=== PATIENT | female | born 1960 | race Caucasian/White ===

== ENCOUNTER 2016-09-07 11:14 | Emergency (ER) | payer BC ==
[~2016-09-07] VITALS: Ht 165.1 cm; Wt 86.4 kg
[~2016-09-07 11:14] MED LIST: GLUCOPHAGE500 MG/TAB PO; NEXIUM 20MG20 MG PO; NORCO 325 MG-51 TAB PO; NOVOLOGMIX70/30 SC; PRINIVIL5 MG PO; VICTOZA6 MG/ML SQ; ZANTAC 7575 MG PO; ZOCOR 10MG10 MG PO
[2016-09-07 11:19] VITALS: TEMP 97
[2016-09-07 12:14] LABS: BASO % 0.7 % (0.0-2.0); EOS # 0.2 (0.0-0.7); EOS % 2.6 % (0-4.0); GRAN # 2.4 (1.4-6.5); GRAN % 42.1 % (42.2-75.2); HEMATOCRIT 39.9 % (37.0-47.0); HEMOGLOBIN 13.3 g/dl (12.5-16.0); LYMPH # 2.7 (1.2-3.4); LYMPH % 47.5 % (20.0-51.0); MEAN CELL VOLUME 86 fl (80.0-100.0); MEAN CORPUSCULAR HEMOGLOBIN 29 pg (27.0-31.0); MEAN CORPUSCULAR HGB CONC 33 g/dl (33.0-37.0); MEAN PLATELET VOLUME 9.7 fl (7.4-10.4); MONO # 0.4 (0.1-0.6); MONO % 6.8 % (1.7-9.3); PLATELET COUNT 353 K/mm3 (130-400); RED BLOOD COUNT 4.62 M/mm3 (4.10-5.30); REDCELL DISTRIBUTION WIDTH-CV 14.1 % (11.5-14.5); WHITE BLOOD COUNT 5.8 K/mm3 (4.8-10.8)
[2016-09-07 12:24] LABS: ADJUSTED CALCIUM 9.3 mg/dL (8.4-10.2); ALBUMIN 3.9 gm/dL (3.5-5.0); BILIRUBIN,TOTAL 0.7 mg/dL (0.0-1.0); CALCIUM 9.2 mg/dL (8.4-10.2); CREATININE, serum 0.62 mg/dL (0.52-1.25); MAGNESIUM 1.7 mg/dL (1.6-2.3); POTASSIUM 4.1 mmol/L (3.4-5.0); TOTAL PROTEIN 7.3 gm/dL (6.4-8.2)
[2016-09-07 12:41] LABS: PROLACTIN 7.4 ng/mL (3.0-18.6)
[2016-09-07] MEDS ORDERED: PHENERGAN 25 TA25 MG PO (13:25)
[2016-09-07] MEDS ORDERED: ANTIVERT 25MG25 MG PO (13:25)
[2016-09-07 13:40] VITALS: BP 128/78; PULSE 78
== END 2016-09-07 13:43 | disposition home or self-care (01) ==
LOC: COL.ER 11:14
PROVIDERS: Emergency Medicine
DX: R42 Dizziness and giddiness (principal); E11.9 Type 2 diabetes mellitus without complications; I10 Essential (primary) hypertension; Z79.4 Long term (current) use of insulin
CPT/HCPCS: J7030

== ENCOUNTER → 2017-07-06 | Outpatient (CLI) | payer BC ==
[~2017-07-06] MED LIST changes: +ANTIVERT 25MG25 MG PO; +PHENERGAN 25 TA25 MG PO
== END ==
LOC: SUN.DIA 12:52
DX: E11.9 Type 2 diabetes mellitus without complications (principal); Z79.4 Long term (current) use of insulin; E66.9 Obesity, unspecified; Z68.32 Body mass index [BMI] 32.0-32.9, adult; Z71.3 Dietary counseling and surveillance
CPT/HCPCS: G0108

== ENCOUNTER → 2017-07-13 | Outpatient (CLI) | payer BC | LOC: SUN.DIA 11:04 | DX: E11.9 Type 2 diabetes mellitus without complications (principal); Z79.4 Long term (current) use of insulin; E66.9 Obesity, unspecified; Z68.32 Body mass index [BMI] 32.0-32.9, adult; Z71.3 Dietary counseling and surveillance | CPT/HCPCS: G0108 ==

== ENCOUNTER → 2017-08-08 | Outpatient (CLI) | payer BC | LOC: SUN.DIA 10:05 | DX: E11.9 Type 2 diabetes mellitus without complications (principal); Z79.4 Long term (current) use of insulin; E66.9 Obesity, unspecified; Z68.31 Body mass index [BMI] 31.0-31.9, adult; Z71.3 Dietary counseling and surveillance | CPT/HCPCS: G0108 ==

== ENCOUNTER → 2017-08-30 | Outpatient (CLI) | payer BC | LOC: SUN.DIA 18:00 | DX: E11.9 Type 2 diabetes mellitus without complications (principal); Z79.4 Long term (current) use of insulin; E66.9 Obesity, unspecified; Z71.3 Dietary counseling and surveillance ==

== ENCOUNTER → 2017-09-05 | Outpatient (CLI) | payer BC | LOC: SUN.DIA 08-30 15:05 | DX: E11.9 Type 2 diabetes mellitus without complications (principal); Z79.4 Long term (current) use of insulin; E66.9 Obesity, unspecified; Z71.3 Dietary counseling and surveillance | CPT/HCPCS: G0109 ==

== ENCOUNTER → 2017-09-13 | Outpatient (CLI) | payer BC | LOC: SUN.DIA 09-06 09:50 | DX: E11.9 Type 2 diabetes mellitus without complications (principal); Z79.4 Long term (current) use of insulin; E66.9 Obesity, unspecified; Z71.3 Dietary counseling and surveillance | CPT/HCPCS: G0109 ==

== ENCOUNTER → 2017-10-05 | Outpatient (CLI) | payer BC | LOC: SUN.DIA 09-21 14:59 | DX: E11.9 Type 2 diabetes mellitus without complications (principal); Z79.4 Long term (current) use of insulin; E66.9 Obesity, unspecified; Z68.32 Body mass index [BMI] 32.0-32.9, adult; Z71.3 Dietary counseling and surveillance | CPT/HCPCS: G0108 ==

== ENCOUNTER → 2017-11-09 | Outpatient (CLI) | payer BC | LOC: COL.VAS 08:51 | DX: R55 Syncope and collapse (principal) ==

== ENCOUNTER → 2017-11-14 | Outpatient (CLI) | payer BC | LOC: COL.CARD 09:28 | DX: R55 Syncope and collapse (principal) ==

== ENCOUNTER → 2017-12-25 | Outpatient (CLI) | payer BC | LOC: COL.RAD 08:49 | DX: K22.4 Dyskinesia of esophagus (principal); K44.9 Diaphragmatic hernia without obstruction or gangrene; K21.9 Gastro-esophageal reflux disease without esophagitis ==

== ENCOUNTER 2018-01-05 17:46 | Inpatient (IN) | payer BC ==
[2018-01-05] VITALS (79 sets, daily range): PULSE 75; TEMP 98.1; O2SAT 94–100
[~2018-01-05] VITALS: Ht 165.1 cm; Wt 87.0 kg
[2018-01-05 18:27] LABS: BASO % 0.6 % (0.0-2.0); EOS # 0.1 (0.0-0.7); EOS % 1.3 % (0-4.0); GRAN % 47.8 % (42.2-75.2); HEMATOCRIT 39.5 % (37.0-47.0); LYMPH # 2.8 (1.2-3.4); LYMPH % 44.2 % (20.0-51.0); MEAN CELL VOLUME 83 fl (80.0-100.0); MEAN CORPUSCULAR HEMOGLOBIN 27 pg (27.0-31.0); MEAN CORPUSCULAR HGB CONC 33 g/dl (33.0-37.0); MEAN PLATELET VOLUME 9.6 fl (7.4-10.4); MONO # 0.4 (0.1-0.6); MONO % 5.9 % (1.7-9.3); PLATELET COUNT 346 K/mm3 (130-400); RED BLOOD COUNT 4.74 M/mm3 (4.10-5.30); REDCELL DISTRIBUTION WIDTH-CV 15.6 % (11.5-14.5)
[2018-01-05 18:32] LABS: INR 0.9 (0.8-3.0); PROTHROMBIN TIME 10.4 SECONDS (9.7-12.8)
[2018-01-05 18:43] LABS: ALBUMIN 4.1 gm/dL (3.5-5.0); BILIRUBIN,TOTAL 0.3 mg/dL (0.0-1.0); CALCIUM 9.5 mg/dL (8.4-10.2); CREATININE, serum 0.66 mg/dL (0.52-1.25); MAGNESIUM 1.6 mg/dL (1.6-2.3); POTASSIUM 3.5 mmol/L (3.4-5.0); TOTAL PROTEIN 7.3 gm/dL (6.4-8.2)
[2018-01-05] MEDS ORDERED: DEXILANT60 MG PO (18:46)
[2018-01-05] MEDS ORDERED: JARDIANCE25 PO (18:47)
[2018-01-05] MEDS ORDERED: GLUCOPHAGE XR500 M1 PO (18:47)
[2018-01-05] MEDS ORDERED: LEXAPRO 10MG10 MG PO (18:48)
[2018-01-05 19:05] LABS: TROPONIN-I 0.265 ng/mL (0.000-0.034)
[2018-01-05] MEDS ORDERED: PHENERGAN 25 TA25 MG PO (21:11)
[2018-01-05] MEDS ORDERED: VALTREX1 GM PO (21:12)
[2018-01-05] MEDS ORDERED: KEPPRA 500MG500 MG PO (21:14)
[2018-01-05] MEDS ORDERED: ZOCOR 40MG40 MG PO (21:16)
[2018-01-06] VITALS (446 sets, daily range): BP systolic 103–118; BP diastolic 56–72; PULSE 53–69; TEMP 97.7–98.5; O2SAT 88–100
[2018-01-06 05:56] LABS: CHOLESTEROL RISK RATIO 5.6
[2018-01-06 06:10] LABS: TROPONIN-I 0.349 ng/mL (0.000-0.034)
[2018-01-07] VITALS (7 sets, daily range): BP systolic 104–126; BP diastolic 50–72; PULSE 61–75; TEMP 97.9–98.5
[2018-01-07 06:49] LABS: CALCIUM 8.7 mg/dL (8.4-10.2); CREATININE, serum 0.65 mg/dL (0.52-1.25); POTASSIUM 3.5 mmol/L (3.4-5.0)
[2018-01-07 07:03] LABS: TROPONIN-I 0.28 ng/mL (0.000-0.034)
[2018-01-08] VITALS (485 sets, daily range): BP systolic 104–146; BP diastolic 56–92; PULSE 58–74; TEMP 97–97.9; O2SAT 93–100
[2018-01-08 06:44] LABS: HEMOGLOBIN 11.5 g/dl (12.5-16.0); MEAN CELL VOLUME 86 fl (80.0-100.0); MEAN CORPUSCULAR HEMOGLOBIN 27 pg (27.0-31.0); MEAN CORPUSCULAR HGB CONC 32 g/dl (33.0-37.0); MEAN PLATELET VOLUME 10.3 fl (7.4-10.4); PLATELET COUNT 279 K/mm3 (130-400); RED BLOOD COUNT 4.23 M/mm3 (4.10-5.30); REDCELL DISTRIBUTION WIDTH-CV 15.5 % (11.5-14.5)
[2018-01-08 06:47] LABS: HEMATOCRIT 36.3 % (37.0-47.0)
[2018-01-08 06:48] LABS: INR 0.9 (0.8-3.0); PROTHROMBIN TIME 10.1 SECONDS (9.7-12.8)
[2018-01-08 06:50] LABS: PARTIAL THROMBOPLASTIN TIME 31.2 SECONDS (26.0-37.0)
[2018-01-08 06:52] LABS: CALCIUM 8.6 mg/dL (8.4-10.2); CREATININE, serum 0.7 mg/dL (0.52-1.25); POTASSIUM 3.6 mmol/L (3.4-5.0)
[2018-01-08 07:06] LABS: TROPONIN-I 0.24 ng/mL (0.000-0.034)
[2018-01-09] VITALS (372 sets, daily range): BP systolic 104–128; BP diastolic 54–78; PULSE 58–81; TEMP 97.1–98; O2SAT 92–100
[2018-01-09 05:42] LABS: BASO % 0.5 % (0.0-2.0); EOS # 0.1 (0.0-0.7); EOS % 2.3 % (0-4.0); GRAN # 3.4 (1.4-6.5); GRAN % 56.9 % (42.2-75.2); HEMOGLOBIN 11.3 g/dl (12.5-16.0); LYMPH # 1.9 (1.2-3.4); LYMPH % 32.1 % (20.0-51.0); MEAN CELL VOLUME 86 fl (80.0-100.0); MEAN CORPUSCULAR HEMOGLOBIN 28 pg (27.0-31.0); MEAN CORPUSCULAR HGB CONC 32 g/dl (33.0-37.0); MONO # 0.5 (0.1-0.6); PLATELET COUNT 265 K/mm3 (130-400); RED BLOOD COUNT 4.08 M/mm3 (4.10-5.30); REDCELL DISTRIBUTION WIDTH-CV 15.6 % (11.5-14.5)
[2018-01-09 05:48] LABS: HEMATOCRIT 35.1 % (37.0-47.0)
[2018-01-09 05:56] LABS: CALCIUM 8.6 mg/dL (8.4-10.2); CREATININE, serum 0.63 mg/dL (0.52-1.25); POTASSIUM 3.7 mmol/L (3.4-5.0)
[2018-01-09] MEDS ORDERED: LIPITOR 80MG80 MG PO (08:37)
[2018-01-09] MEDS ORDERED: BRILINTA90 MG PO (08:37)
[2018-01-09] MEDS ORDERED: NITROSTAT0.4 MG/TAB SL (08:39)
[2018-01-09] MEDS ORDERED: ASPIRIN E.C. 8181 MG PO (08:39)
[2018-01-09] MEDS ORDERED: COREG 3.123.125 MG/T PO (08:39)
[2018-01-09] MEDS ORDERED: ZESTRIL 10MG10 MG PO (08:39)
[2018-01-09] MEDS ORDERED: KRILL OIL 1,001 EAC1 PO (09:17)
== END 2018-01-09 13:35 | disposition home or self-care (01) | DRG 247 ==
LOC: COL.ER 17:46 → ICU 19:25 → SURG 01-06 16:44 → ICU 01-06 16:44 → SURG 01-08 09:47 → ICU 01-08 09:47
PROVIDERS: Emergency Medicine; Family Medicine; Internal Medicine Cardiovascular Disease; Nurse Practitioner
PROC: 027035Z Dilation of Coronary Artery, One Artery with Two Drug-eluting Intraluminal Devices, Percutaneous Approach (ICD-10-PCS; principal; 2018-01-08)
PROC: B2111ZZ Fluoroscopy of Multiple Coronary Arteries using Low Osmolar Contrast (ICD-10-PCS; 2018-01-08)
DX: I21.4 Non-ST elevation (NSTEMI) myocardial infarction (principal); E44.0 Moderate protein-calorie malnutrition; I10 Essential (primary) hypertension; E11.65 Type 2 diabetes mellitus with hyperglycemia; Z79.4 Long term (current) use of insulin; I25.10 Atherosclerotic heart disease of native coronary artery without angina pectoris; K21.9 Gastro-esophageal reflux disease without esophagitis
CPT/HCPCS: C1725; C1760; C1769; C1874; C1887; C1894; C9600; J0583; J1650; J1815; J2250; J2405; J2765; J3010; J7120; Q9967

== ENCOUNTER → 2018-02-06 | Outpatient (CLI) | payer BC ==
[~2018-02-06] MED LIST changes: +ASPIRIN E.C. 8181 MG PO; +BRILINTA90 MG PO; +COREG 3.123.125 MG/T PO; +DEXILANT60 MG PO; +GLUCOPHAGE XR500 M1 PO; +JARDIANCE25 PO; +KEPPRA 500MG500 MG PO; +KRILL OIL 1,001 EAC1 PO; +LEXAPRO 10MG10 MG PO; +LIPITOR 80MG80 MG PO; +NITROSTAT0.4 MG/TAB SL; +VALTREX1 GM PO; +ZESTRIL 10MG10 MG PO; +ZOCOR 40MG40 MG PO
== END ==
LOC: SUN.DIA 09-20 10:50
DX: E11.9 Type 2 diabetes mellitus without complications (principal); Z79.4 Long term (current) use of insulin; E66.9 Obesity, unspecified
CPT/HCPCS: G0108

== ENCOUNTER 2018-03-05 12:13 | Outpatient (RCR) | payer BC | END 2018-04-19 | disposition home or self-care (01) | LOC: COL.CR | DX: Z48.812 Encounter for surgical aftercare following surgery on the circulatory system (principal); Z95.5 Presence of coronary angioplasty implant and graft ==

== ENCOUNTER → 2018-04-10 | Outpatient (CLI) | payer BC | LOC: SUN.DIA 03-22 15:02 | DX: E11.9 Type 2 diabetes mellitus without complications (principal) | CPT/HCPCS: G0108 ==

== ENCOUNTER 2018-05-16 15:18 | Outpatient (RCR) | payer SELFPAY | END 2018-06-04 | disposition home or self-care (01) | LOC: COL.CR | DX: Z02.89 Encounter for other administrative examinations (principal) ==

== ENCOUNTER → 2018-07-12 | Outpatient (CLI) | payer BC | LOC: SUN.DIA 06-05 11:56 | DX: E11.9 Type 2 diabetes mellitus without complications (principal); Z79.4 Long term (current) use of insulin; E66.9 Obesity, unspecified | CPT/HCPCS: G0108 ==

== ENCOUNTER 2018-09-10 14:42 | Outpatient (RCR) | payer SELFPAY | END 2018-09-11 | disposition home or self-care (01) | LOC: COL.CR | DX: Z02.89 Encounter for other administrative examinations (principal) ==

== ENCOUNTER 2018-09-21 14:54 | Outpatient (RCR) | payer SELFPAY ==
[2018-12-11] MEDS ORDERED: ZOFRAN 4MG T4 MG/TAB PO (13:27)
== END 2018-12-11 | disposition home or self-care (01) ==
LOC: COL.CR
DX: Z02.89 Encounter for other administrative examinations (principal)

== ENCOUNTER 2018-12-11 09:36 | Emergency (ER) | payer BC ==
[~2018-12-11] VITALS: Ht 165.1 cm; Wt 81.8 kg
[2018-12-11 09:41] VITALS: TEMP 96.6
[2018-12-11 10:13] LABS: BASO # 0.1 (0.0-0.2); BASO % 0.7 % (0.0-2.0); EOS # 0.1 (0.0-0.7); EOS % 0.9 % (0-4.0); GRAN # 6.2 (1.4-6.5); GRAN % 72.1 % (42.2-75.2); HEMATOCRIT 41.6 % (37.0-47.0); LYMPH # 1.9 (1.2-3.4); LYMPH % 21.5 % (20.0-51.0); MEAN CELL VOLUME 82 fl (80.0-100.0); MEAN CORPUSCULAR HEMOGLOBIN 26 pg (27.0-31.0); MEAN CORPUSCULAR HGB CONC 31 g/dl (33.0-37.0); MEAN PLATELET VOLUME 10.1 fl (7.4-10.4); MONO # 0.4 (0.1-0.6); MONO % 4.5 % (1.7-9.3); PLATELET COUNT 355 K/mm3 (130-400); RED BLOOD COUNT 5.05 M/mm3 (4.10-5.30); REDCELL DISTRIBUTION WIDTH-CV 16.4 % (11.5-14.5)
[2018-12-11 10:17] LABS: ALANINE AMINOTRANSFERASE 18 U/L (9-52); ALBUMIN 4.2 gm/dL (3.5-5.0); ALKALINE PHOSPHATASE 103 U/L (50-136); ANION GAP 14 mmol/L (7-16); AST,SGOT 22 U/L (15-37); BILIRUBIN,TOTAL 0.5 mg/dL (0.0-1.0); BLOOD UREA NITROGEN 17 mg/dL (7-17); CALCIUM 9.3 mg/dL (8.4-10.2); CARBON DIOXIDE 23 mmol/L (22-30); CHLORIDE 103 mmol/L (98-107); CREATININE, serum 0.52 (0.52-1.25); GLUCOSE 350 mg/dL (74-106); LIPASE 101 U/L (23-300); POTASSIUM 4.1 mmol/L (3.4-5.0); SODIUM 140 mmol/L (137-145); TOTAL PROTEIN 7.6 gm/dL (6.4-8.2)
[2018-12-11 10:19] LABS: INR 0.9 (0.8-3.0); PROTHROMBIN TIME 10.2 SECONDS (9.7-12.8)
[2018-12-11 10:33] LABS: TROPONIN-I < 0.012 ng/mL (0.000-0.035)
[2018-12-11] MEDS ORDERED: ZOFRAN 4MG T4 MG/TAB PO (13:27)
[2018-12-11 13:35] VITALS: BP 116/62; PULSE 64
== END 2018-12-11 13:35 | disposition home or self-care (01) ==
LOC: COL.ER 09:36
PROVIDERS: Emergency Medicine
DX: R07.89 Other chest pain (principal); E11.9 Type 2 diabetes mellitus without complications; Z95.5 Presence of coronary angioplasty implant and graft; Z79.82 Long term (current) use of aspirin; Z79.4 Long term (current) use of insulin
CPT/HCPCS: J2405; J7030

== ENCOUNTER → 2019-08-07 | Outpatient (CLI) | payer BC ==
[~2019-08-07] MED LIST changes: +ZOFRAN 4MG T4 MG/TAB PO
== END ==
LOC: SUN.DIA 07-24 08:14 → DIA.ED 11:55
DX: E11.9 Type 2 diabetes mellitus without complications (principal); Z79.4 Long term (current) use of insulin; Z68.32 Body mass index [BMI] 32.0-32.9, adult
CPT/HCPCS: G0108

== ENCOUNTER → 2020-02-27 | Outpatient (CLI) | payer BC ==
[~2020-02-27] MED LIST changes: +CIPRO 500MG TA500 MG PO; +ELIQUIS 5MG PO; +FLAGYL500 MG PO; -NOVOLOGMIX70/30 SC; +NOVOLOGMIX70/30 SQ
== END ==
LOC: COL.RAD 10:15
DX: K52.9 Noninfective gastroenteritis and colitis, unspecified (principal); I81 Portal vein thrombosis; I82.0 Budd-Chiari syndrome; K92.1 Melena; Z90.710 Acquired absence of both cervix and uterus
CPT/HCPCS: Q9967

== ENCOUNTER 2020-09-18 15:21 | Emergency (ER) | payer BC ==
[~2020-09-18] VITALS: Ht 165.1 cm; Wt 88.4 kg
[2020-09-18 15:50] VITALS: TEMP 98.3
[2020-09-18 17:24] LABS: BASO % 0.7 % (0.0-2.0); EOS # 0.2 (0.0-0.7); EOS % 2.6 % (0-4.0); GRAN # 3.1 (1.4-6.5); GRAN % 51.1 % (42.2-75.2); HEMATOCRIT 39.9 % (37.0-47.0); HEMOGLOBIN 12.3 g/dl (12.5-16.0); LYMPH # 2.3 (1.2-3.4); LYMPH % 37.9 % (20.0-51.0); MEAN CELL VOLUME 83 fl (80.0-100.0); MEAN CORPUSCULAR HEMOGLOBIN 26 pg (27.0-31.0); MEAN CORPUSCULAR HGB CONC 31 g/dl (33.0-37.0); MEAN PLATELET VOLUME 9.6 fl (7.4-10.4); MONO # 0.5 (0.1-0.6); MONO % 7.4 % (1.7-9.3); PLATELET COUNT 423 K/mm3 (130-400); RED BLOOD COUNT 4.82 M/mm3 (4.10-5.30); REDCELL DISTRIBUTION WIDTH-CV 15.3 % (11.5-14.5)
[2020-09-18 17:30] LABS: PROTHROMBIN TIME 10.6 SECONDS (9.7-12.8)
[2020-09-18 17:33] LABS: PARTIAL THROMBOPLASTIN TIME 32.4 SECONDS (26.0-37.0)
[2020-09-18 17:35] LABS: ALANINE AMINOTRANSFERASE 22 U/L (4-34); ALBUMIN 4.4 gm/dL (3.5-5.0); ALKALINE PHOSPHATASE 89 U/L (50-136); ANION GAP 14 mmol/L (7-16); AST,SGOT 26 U/L (15-37); BILIRUBIN,TOTAL 0.2 mg/dL (0.0-1.0); BLOOD UREA NITROGEN 15 mg/dL (7-17); CALCIUM 9.7 mg/dL (8.4-10.2); CARBON DIOXIDE 24 mmol/L (22-30); CHLORIDE 104 mmol/L (98-107); CREATININE, serum 0.56 (0.52-1.25); GLUCOSE 181 mg/dL (74-106); SODIUM 142 mmol/L (137-145); TOTAL PROTEIN 8.5 gm/dL (6.4-8.2)
[2020-09-18 17:48] LABS: TROPONIN-I < 0.012 ng/mL (0.000-0.035)
[2020-09-18 20:17] VITALS: BP 110/90; PULSE 71
== END 2020-09-18 18:33 | disposition home or self-care (01) ==
LOC: COL.ER 15:21
PROVIDERS: Family Medicine
DX: R53.83 Other fatigue (principal); I25.10 Atherosclerotic heart disease of native coronary artery without angina pectoris; I25.2 Old myocardial infarction; Z95.9 Presence of cardiac and vascular implant and graft, unspecified; Z79.01 Long term (current) use of anticoagulants; Z79.84 Long term (current) use of oral hypoglycemic drugs

== ENCOUNTER 2020-11-17 09:33 | Day surgery (SDC) | payer BC ==
[~2020-11-17] VITALS: Ht 165.1 cm; Wt 89.4 kg
[2020-11-17] VITALS (9 sets, daily range): BP systolic 108–150; BP diastolic 54–71; PULSE 54–74; TEMP 97.9
[2020-11-17] MEDS ORDERED: IMDUR 30MG30 MG/TAB PO (10:00)
[2020-11-17] MEDS ORDERED: BASAGLAR K100 UNIT/1 SQ (10:01)
[2020-11-17] MEDS ORDERED: NOVOLOG 100U100 U/M1 SQ (10:03)
[2020-11-17] MEDS ORDERED: GLUCOPHAGE500 MG/TAB PO (10:03)
[2020-11-17] MEDS ORDERED: JARDIANCE25 PO (10:04)
[2020-11-17] MEDS ORDERED: LEXAPRO 10MG10 MG PO (10:04)
[2020-11-17] MEDS ORDERED: LIPITOR 80MG80 MG PO (10:05)
[2020-11-17] MEDS ORDERED: COREG 6.256.25 MG/TA PO (10:05)
[2020-11-17] MEDS ORDERED: ZESTRIL 10MG10 MG PO (10:05)
[2020-11-17] MEDS ORDERED: PROTONIX 40MG T40 MG PO (10:16)
[2020-11-17] MEDS ORDERED: OMEGA-31 SGL PO (10:16)
[2020-11-17] MEDS ORDERED: ASPIRIN E.C. 8181 MG PO (10:16)
[2020-11-17 10:53] LABS: HEMOGLOBIN 10.5 g/dl (12.5-16.0); MEAN CELL VOLUME 81 fl (80.0-100.0); MEAN CORPUSCULAR HEMOGLOBIN 25 pg (27.0-31.0); MEAN CORPUSCULAR HGB CONC 31 g/dl (33.0-37.0); MEAN PLATELET VOLUME 9.8 fl (7.4-10.4); PLATELET COUNT 370 K/mm3 (130-400); RED BLOOD COUNT 4.21 M/mm3 (4.10-5.30); REDCELL DISTRIBUTION WIDTH-CV 15.7 % (11.5-14.5)
[2020-11-17 11:04] LABS: CALCIUM 8.9 mg/dL (8.4-10.2); CREATININE, serum 0.57 (0.52-1.25); PARTIAL THROMBOPLASTIN TIME 28.1 SECONDS (26.0-37.0); POTASSIUM 3.9 mmol/L (3.4-5.0)
--- NOTE | 2020-11-17 14:10 | NUR ---
Report from Carmella JANSEN. Transferred from Tar Pot Worker by bed. Right Tband with 14 cc air, good pulses and cap refill < 3 secs noted. VSS.
--- NOTE | 2020-11-17 16:25 | NUR ---
14 cc air released from right Tband and dressing applied. INT discontinued intact. Discharge instructions given.
[2020-11-17] MEDS ORDERED: NORVASC 5MG5 MG/TAB PO (16:28)
[2020-11-17] MEDS ORDERED: PLAVIX 75MG TAB75 MG PO (16:29)
--- NOTE | 2020-11-17 16:45 | NUR ---
Transferred to private car by lexie
== END 2020-11-17 16:45 | disposition home or self-care (01) ==
LOC: COL.CAR 09:33
PROVIDERS: Internal Medicine Cardiovascular Disease
DX: I25.110 Atherosclerotic heart disease of native coronary artery with unstable angina pectoris (principal); I10 Essential (primary) hypertension; I25.2 Old myocardial infarction; Z95.818 Presence of other cardiac implants and grafts; I34.0 Nonrheumatic mitral (valve) insufficiency; Z79.82 Long term (current) use of aspirin
CPT/HCPCS: C1769; C1887; J1644; J2250; J3010; Q9967

== ENCOUNTER 2021-06-18 03:09 | Inpatient (IN) | payer BC ==
[~2021-06-18] VITALS: Ht 167.6 cm; Wt 83.9 kg
[2021-06-18] VITALS (8 sets, daily range): BP systolic 107–138; BP diastolic 53–81; PULSE 70–87; TEMP 97.3–98.3
[~2021-06-18 03:09] MED LIST changes: +BASAGLAR K100 UNIT/1 SQ; +COREG 6.256.25 MG/TA PO; +IMDUR 30MG30 MG/TAB PO; +NORVASC 5MG5 MG/TAB PO; +NOVOLOG 100U100 U/M1 SQ; +OMEGA-31 SGL PO; +PLAVIX 75MG TAB75 MG PO; +PROTONIX 40MG T40 MG PO
[2021-06-18 03:36] LABS: BASO # 0.1 K/mm3 (0.0-0.2); BASO % 0.6 % (0.0-2.0); EOS # 0.1 K/mm3 (0.0-0.7); EOS % 0.8 % (0.0-4.0); GRAN # 5.7 K/mm3 (1.4-6.5); LYMPH # 2.3 K/mm3 (1.2-3.4); LYMPH % 26.3 % (20.0-51.0); MEAN CELL VOLUME 79 fl (80.0-100.0); MEAN CORPUSCULAR HEMOGLOBIN 25 pg (27-31); MEAN CORPUSCULAR HGB CONC 32 g/dl (33.0-37.0); MEAN PLATELET VOLUME 9.7 fl (7.4-10.4); MONO # 0.5 K/mm3 (0.1-0.6); MONO % 6.1 % (1.7-9.3); PLATELET COUNT 408 K/mm3 (130-400); RED BLOOD COUNT 5.21 M/mm3 (4.10-5.30); REDCELL DISTRIBUTION WIDTH-CV 15.5 % (11.5-14.5)
[2021-06-18 03:54] LABS: ALBUMIN 4.3 gm/dL (3.4-4.8); BILIRUBIN,TOTAL 0.6 mg/dL (0.2-1.2); CALCIUM 11.2 mg/dL (8.4-10.2); POTASSIUM 4.3 mmol/L (3.5-4.5); TOTAL PROTEIN 8.1 gm/dL (6.2-8.1)
[2021-06-18 04:01] LABS: TROPONIN-I 0.418 ng/mL (0.00-0.033)
--- NOTE | 2021-06-18 05:20 | NUR ---
ADMITTED TO ROOM 330 PER BED. PT A&OX4. ORIENTED TO ROOM. KORTNEY HERE.
[2021-06-18] MEDS ORDERED: DOXYCYCLINE 10100 MG PO ×2 (06:12→06:13)
[2021-06-18] MEDS ORDERED: VALTREX1 GM PO (06:16)
--- NOTE | 2021-06-18 08:16 | NUR ---
CRITICAL LAB VALUE CALLED TO [facility] X5 NO ONE ELSE AVAILABLE FROM [facility] AT THIS TIME.
--- NOTE | 2021-06-18 08:17 | NUR ---
PT DENIES NEEDS AT THIS TIME.
--- NOTE | 2021-06-18 09:31 | NUR ---
PT RESTING QUIETLY IN BED. DENIES PAIN AND REPORTS FEELING MUCH BETTER THIS AM. IV RUNNING PER ORDERS. PT REMIANS NPO AT THIS TIME. TELE ON AND HEPARIN RUNNING PER ORDERS.
--- NOTE | 2021-06-18 10:44 | NUR ---
PHYSICIANS ROUNDED AND ATTEMPTING TO TRANSFER TO OTHER FACILITY FOR CARDIAC PROCEEDURE.
--- NOTE | 2021-06-18 11:36 | NUR ---
CHANGED RATE OF HEPARIN PER ORDER SET.
--- NOTE | 2021-06-18 12:36 | NUR ---
NOTIFIED [facility] J[facility] OF CRITICAL LAB RESULTS WHEN RECIEVED.
--- NOTE | 2021-06-18 14:15 | NUR ---
NOTIFIED DR. MARIA OF LAB RESULTS.
--- NOTE | 2021-06-18 19:13 | NUR ---
RECEIVED CHANGE OF SHIFT REPORT FROM DAY SHIFT RN.
[2021-06-19 03:29] LABS: BASO # 0.1 K/mm3 (0.0-0.2); BASO % 0.8 % (0.0-2.0); EOS # 0.2 K/mm3 (0.0-0.7); GRAN # 2.4 K/mm3 (1.4-6.5); GRAN % 40.4 % (42.2-75.2); HEMATOCRIT 37.8 % (37.0-47.0); LYMPH # 2.8 K/mm3 (1.2-3.4); MEAN CELL VOLUME 79 fl (80.0-100.0); MEAN CORPUSCULAR HEMOGLOBIN 25 pg (27-31); MEAN CORPUSCULAR HGB CONC 32 g/dl (33.0-37.0); MEAN PLATELET VOLUME 9.4 fl (7.4-10.4); MONO # 0.5 K/mm3 (0.1-0.6); MONO % 8.6 % (1.7-9.3); PLATELET COUNT 335 K/mm3 (130-400); RED BLOOD COUNT 4.78 M/mm3 (4.10-5.30); REDCELL DISTRIBUTION WIDTH-CV 15.4 % (11.5-14.5)
[2021-06-19 03:47] LABS: CALCIUM 8.8 mg/dL (8.4-10.2); CREATININE, serum 0.8 mg/dL (0.57-1.11); POTASSIUM 3.5 mmol/L (3.5-4.5)
--- NOTE | 2021-06-19 04:30 | NUR ---
PATIENT REFUSED VS TAKEN, REPORTED HAD NOT HAD MUCH SLEEP TONIGHT DUE TO VISITS FROM PROVIDER INTERMITTENTLY
--- NOTE | 2021-06-19 06:44 | NUR ---
CHANGE OF SHIFT REPORT GIVEN TO DAY SHIFT RNSTU.
[2021-06-19 08:18] VITALS: BP 112/69; PULSE 71; TEMP 97.5
--- NOTE | 2021-06-19 09:00 | NUR ---
PT RESTING IN BED, PT DENIES CHEST PAIN CURRENTLY. EATING AND DRINKING PT DENIES NAUSEA AND VOMITING.
[2021-06-19 11:44] VITALS: BP 128/63; PULSE 82; TEMP 97.7
--- NOTE | 2021-06-19 12:13 | NUR ---
NOTIFIED DR MARIA OF TROPONIN VALUE.
--- NOTE | 2021-06-19 12:15 | NUR ---
CONTACTED DR MARIA ON BG LEVELS.
[2021-06-19 16:33] VITALS: BP 131/64; PULSE 64; TEMP 98.2
--- NOTE | 2021-06-19 18:45 | NUR ---
RECEIVED CHANGE OF SHIFT REPORT FROM DAY SHIFT RN.
[2021-06-19 19:16] VITALS: BP 130/61; PULSE 94; TEMP 98.1
[2021-06-19 23:17] VITALS: BP 130/67; PULSE 63; TEMP 98.1
--- NOTE | 2021-06-20 02:14 | NUR ---
PATIENT SLEEPING, DOES NOT WAKE WHEN NURSING OPENS DOOR TO ROOM. HAS DENIED CHEST PAIN/SOA SO FAR THIS SHIFT. OBSERVED BREATHING NONLABORED AND EVEN. TELE IN PLACE. HEPARIN INFUSING WITH NO PROBLEMS. CONTINUES TO BE UP INDEPEDENTLY IN ROOM WITH NO REPORTED PROBLEMS OR CONCERNS.
[2021-06-20 03:10] VITALS: BP 127/61; PULSE 79; TEMP 97.8
--- NOTE | 2021-06-20 07:04 | NUR ---
CHANGE OF SHIFT REPORT GIVEN TO DAY SHIFT RNSTU.
[2021-06-20 07:37] VITALS: BP 149/73; PULSE 64; TEMP 97.8
--- NOTE | 2021-06-20 10:42 | NUR ---
PT RESTING IN BED. INDEPENDENT IN ROOM, SHOWERED YESTERDAY INDEPENDNETLY. PT DENIES NEEDS THIS AM.
[2021-06-20 11:20] VITALS: BP 124/62; PULSE 62; TEMP 98.2
--- NOTE | 2021-06-20 13:30 | NUR ---
HEP XA IN THERAPUTIC RANGE NO CHANGE.
[2021-06-20 15:27] VITALS: BP 116/64; PULSE 73; TEMP 98.2
[2021-06-20 19:36] VITALS: BP 104/46; PULSE 70; TEMP 98
--- NOTE | 2021-06-20 20:18 | NUR ---
CHANGED HEP GTT TO 6.5CC/HR PER PROTOCOL.
--- NOTE | 2021-06-20 21:00 | NUR ---
PT ATE SNACK PRIOR TO ACCUCHECK. WILL RECHECK IN 2 HRS.
[2021-06-21] VITALS (14 sets, daily range): BP systolic 100–146; BP diastolic 55–88; PULSE 55–71; TEMP 97.7–98
--- NOTE | 2021-06-21 02:50 | NUR ---
DECREASED HEPARIN TO 5.5CC/HR PER PROTOCOL
[2021-06-21 09:36] LABS: PROTHROMBIN TIME 11.3 SECONDS (9.7-12.8)
[2021-06-21 09:37] LABS: BASO % 0.8 % (0.0-2.0); EOS # 0.2 K/mm3 (0.0-0.7); EOS % 3.3 % (0.0-4.0); GRAN # 2.5 K/mm3 (1.4-6.5); GRAN % 52.2 % (42.2-75.2); HEMATOCRIT 37.3 % (37.0-47.0); HEMOGLOBIN 11.8 g/dl (12.5-16.0); LYMPH # 1.7 K/mm3 (1.2-3.4); LYMPH % 35.6 % (20.0-51.0); MEAN CELL VOLUME 80 fl (80.0-100.0); MEAN CORPUSCULAR HEMOGLOBIN 25 pg (27-31); MEAN CORPUSCULAR HGB CONC 32 g/dl (33.0-37.0); MEAN PLATELET VOLUME 9.7 fl (7.4-10.4); MONO # 0.4 K/mm3 (0.1-0.6); MONO % 7.9 % (1.7-9.3); PLATELET COUNT 337 K/mm3 (130-400); RED BLOOD COUNT 4.68 M/mm3 (4.10-5.30); REDCELL DISTRIBUTION WIDTH-CV 15.3 % (11.5-14.5)
[2021-06-21 09:40] LABS: CALCIUM 8.7 mg/dL (8.4-10.2); CREATININE, serum 0.73 mg/dL (0.57-1.11); POTASSIUM 3.6 mmol/L (3.5-4.5)
--- NOTE | 2021-06-21 10:30 | NUR ---
CARDIOLOGY & VICE PRESIDENT FINANCIAL STAFF AT BEDSIDE. PATIENT PLANNED TO HEART CATH LATER THIS AM.
--- NOTE | 2021-06-21 11:58 | NUR ---
PATIENT GOING DOWN TO APPLICATION SUPPORT TECHNICIAN VIA BED.
--- NOTE | 2021-06-21 12:24 | NUR ---
SEE MERGE DOCUMENTATION FOR MEDICATION ADMINISTRATION TIMES AND INTRA/POST PROCEDURE SEDATION ASSESSMENTS.
--- NOTE | 2021-06-21 13:00 | NUR ---
PATIENT BACK IN ROOM POST HEART CATH WITH STENT. RIGHT RADIAL BAND WITH 12CC OF AIR. HEAD TO TOE ASSESSMENT WNL. VSS. AT BEDSIDE. NO OTHER NEEDS.
--- NOTE | 2021-06-21 14:08 | NUR ---
mastic worker met with the patient to discuss discharge plan. Patient and her Ted ([phone]) split their time between [place] and [place]. When in [place] they live in their RV. Patient reports that she is independent with her activities of daily living and she does not utilize any DME to assist with mobility. Patient reports to no oxygen use at baseline. PCP when in [place] is and she utilizes [facility] for medications with no cost difficulty. Patient doesn't think that she has a DPOA-HC established and is not interested in one at this time. Education is provided and the patient verbalizes her understanding of the above. Patient's Ted is present at bedside during explanation and verbalizes his understanding/agreement as well. Patient is planning on returning home post discharge with no concerns. Collaborated with the patient's RN who does not feel as if the patient is needing a PT eval. Discharge plan: Home with spouse.
--- NOTE | 2021-06-21 15:00 | NUR ---
2CC OF AIR REMOVED FROM RIGHT RADIAL BAND, NO BLEEDING NOTED.
--- NOTE | 2021-06-21 15:07 | NUR ---
First visit from the flue tile press operator. No needs right now.
--- NOTE | 2021-06-21 15:30 | NUR ---
REMOVED 5CC OF AIR FROM RIGHT RADIAL BAND AND NOTICED BLEEDING FROM SITE. 5CC OF AIR REPLACED. WILL CONTINUE TO MONITOR.
--- NOTE | 2021-06-21 16:30 | NUR ---
REOVED 5CC OF AIR FROM RIGHT RADIAL BAND, NO BLEEDING NOTED.
--- NOTE | 2021-06-21 17:00 | NUR ---
REMOVED ANOTHER 2CC OF AIR FROM RIGHT RADIAL BAND, NO BLEEDING. WILL MONITOR.
--- NOTE | 2021-06-21 20:03 | NUR ---
PT RESTING IN BED. DENIES PAIN. RT RADIAL ARTER SITE CDI. STRONG PULSE.
[2021-06-22 04:17] VITALS: BP 134/60; PULSE 60; TEMP 98.6
[2021-06-22 07:53] VITALS: BP 118/64; PULSE 65; TEMP 98.3
--- NOTE | 2021-06-22 08:00 | NUR ---
PATIENT IS A&O. VSS ON TELE. DENIES CHEST PAIN, SOA OR NAUSEA. TOLERATING AHA DIET. LEFT FORARM IV TO INT. HEAD TO TOE ASSESSMENT WNL. RIGHT RADIAL SITE IS CD&I AND DAX. INDEPENDENT IN ROOM. PATIENT WILL LIKELY DISCHARGE HOME LATER TODAY PENDING CARDIOLOGY.
[2021-06-22 08:41] LABS: BASO % 0.6 % (0.0-2.0); EOS # 0.1 K/mm3 (0.0-0.7); EOS % 2.4 % (0.0-4.0); GRAN # 3.5 K/mm3 (1.4-6.5); GRAN % 64.5 % (42.2-75.2); HEMATOCRIT 38.6 % (37.0-47.0); HEMOGLOBIN 12.1 g/dl (12.5-16.0); LYMPH # 1.3 K/mm3 (1.2-3.4); MEAN CELL VOLUME 79 fl (80.0-100.0); MEAN CORPUSCULAR HEMOGLOBIN 25 pg (27-31); MEAN CORPUSCULAR HGB CONC 31 g/dl (33.0-37.0); MEAN PLATELET VOLUME 9.3 fl (7.4-10.4); MONO # 0.4 K/mm3 (0.1-0.6); MONO % 7.3 % (1.7-9.3); PLATELET COUNT 332 K/mm3 (130-400); RED BLOOD COUNT 4.86 M/mm3 (4.10-5.30); REDCELL DISTRIBUTION WIDTH-CV 15.4 % (11.5-14.5)
[2021-06-22 08:52] LABS: CALCIUM 8.7 mg/dL (8.4-10.2); CREATININE, serum 0.72 mg/dL (0.57-1.11); POTASSIUM 4.2 mmol/L (3.5-4.5)
[2021-06-22] MEDS ORDERED: PLAVIX 75MG TAB75 MG PO (09:34)
[2021-06-22] MEDS ORDERED: NOVOLOG 100U100 U/M1 SQ (09:38)
[2021-06-22] MEDS ORDERED: TOPROL XL 25MG25 MG PO (09:39)
[2021-06-22 11:41] VITALS: BP 130/59; PULSE 61; TEMP 98.2
--- NOTE | 2021-06-22 14:00 | NUR ---
PATIENT DISCHARGING HOME VIA AMBULATORY WITH TO PERSONAL VEHICLE. GAVE DISCHARGE INSTRUCTIONS, E-SCRIPTS SENT & SCRIPT FOR INSULIN GIVEN, AND DISCUSSED F/U APTS. ANSWERED QUESTIONS/CONCERNS. PCT DC'D IV SITE AND TELE. PATIENT IS DRESSED, PACKED AND ESCORTED OUT.
--- NOTE | 2021-06-22 14:02 | NUR ---
dye worker met with patient and spouse and took copies of health insurances down to admissions. Patient has her own BCBS and her spouse's is secondary. Worker provided information on diabetes education and also Cardiac rehab.
== END 2021-06-22 14:30 | disposition home or self-care (01) | DRG 281 ==
LOC: COL.ER 03:09 → SURG 04:13
PROVIDERS: Emergency Medicine; Internal Medicine Adult Congenital Heart Disease; Physician Assistant; ADMIT Student in an Organized Health Care Education/Training Program
PROC: 4A023N7 Measurement of Cardiac Sampling and Pressure, Left Heart, Percutaneous Approach (ICD-10-PCS; principal; 2021-06-21)
PROC: B2111ZZ Fluoroscopy of Multiple Coronary Arteries using Low Osmolar Contrast (ICD-10-PCS; 2021-06-21)
DX: I21.4 Non-ST elevation (NSTEMI) myocardial infarction (principal); I50.22 Chronic systolic (congestive) heart failure; I25.10 Atherosclerotic heart disease of native coronary artery without angina pectoris; I11.0 Hypertensive heart disease with heart failure; I25.5 Ischemic cardiomyopathy; I25.2 Old myocardial infarction; E11.65 Type 2 diabetes mellitus with hyperglycemia; K21.9 Gastro-esophageal reflux disease without esophagitis; F32.A Depression, unspecified; G40.909 Epilepsy, unspecified, not intractable, without status epilepticus; Z20.822 Contact with and (suspected) exposure to COVID-19; Z95.5 Presence of coronary angioplasty implant and graft; Z90.710 Acquired absence of both cervix and uterus; Z79.4 Long term (current) use of insulin; Z79.82 Long term (current) use of aspirin
CPT/HCPCS: 99223-AI; 99233-AI; 99239; C1725; C1769; C1874; C1887; C9600; J1644; J1815; J2250; J2405; J3010; Q9967

== ENCOUNTER → 2021-06-23 | Outpatient (CLI) | payer BC ==
[~2021-06-23] MED LIST changes: +DOXYCYCLINE 10100 MG PO; +TOPROL XL 25MG25 MG PO
== END ==
LOC: DIA.ED 10:19
DX: E11.65 Type 2 diabetes mellitus with hyperglycemia (principal); Z79.4 Long term (current) use of insulin; E78.5 Hyperlipidemia, unspecified
CPT/HCPCS: G0108

== ENCOUNTER → 2021-07-12 | Outpatient (CLI) | payer BC | LOC: DIA.ED | DX: E11.65 Type 2 diabetes mellitus with hyperglycemia (principal); Z79.4 Long term (current) use of insulin; E78.5 Hyperlipidemia, unspecified | CPT/HCPCS: G0108 ==

== ENCOUNTER → 2021-07-26 | Outpatient (CLI) | payer BC | LOC: DIA.ED 08:21 | DX: E11.65 Type 2 diabetes mellitus with hyperglycemia (principal); Z79.4 Long term (current) use of insulin; E78.5 Hyperlipidemia, unspecified | CPT/HCPCS: G0108 ==

== ENCOUNTER → 2021-07-26 | Outpatient (RCR) | payer BC | END | disposition home or self-care (01) | LOC: COL.CR | DX: I21.4 Non-ST elevation (NSTEMI) myocardial infarction (principal); E11.65 Type 2 diabetes mellitus with hyperglycemia; Z79.4 Long term (current) use of insulin | CPT/HCPCS: G0108 ==

== ENCOUNTER 2021-08-11 12:12 | Observation (INO) | payer BC ==
[~2021-08-11] VITALS: Ht 165.1 cm; Wt 89.0 kg
[2021-08-11] VITALS (11 sets, daily range): BP systolic 103–153; BP diastolic 55–86; PULSE 62–70; TEMP 97.8–98.1
[2021-08-11 12:38] LABS: BASO % 0.6 % (0.0-2.0); EOS # 0.1 K/mm3 (0.0-0.7); EOS % 1.4 % (0.0-4.0); GRAN # 4.9 K/mm3 (1.4-6.5); HEMOGLOBIN 11.1 g/dl (12.5-16.0); LYMPH # 1.7 K/mm3 (1.2-3.4); LYMPH % 23.3 % (20.0-51.0); MEAN CELL VOLUME 79 fl (80.0-100.0); MEAN CORPUSCULAR HEMOGLOBIN 25 pg (27-31); MEAN CORPUSCULAR HGB CONC 32 g/dl (33.0-37.0); MEAN PLATELET VOLUME 9.6 fl (7.4-10.4); MONO # 0.4 K/mm3 (0.1-0.6); MONO % 5.4 % (1.7-9.3); PLATELET COUNT 357 K/mm3 (130-400); RED BLOOD COUNT 4.39 M/mm3 (4.10-5.30); REDCELL DISTRIBUTION WIDTH-CV 15.9 % (11.5-14.5)
[2021-08-11 12:41] LABS: HEMATOCRIT 34.7 % (37.0-47.0)
[2021-08-11 12:44] LABS: INR 1.1 (0.8-3.0)
[2021-08-11 12:51] LABS: ALANINE AMINOTRANSFERASE 18 U/L (0-55); ALBUMIN 3.6 gm/dL (3.4-4.8); ALKALINE PHOSPHATASE 87 U/L (40-150); ANION GAP 14 mmol/L (7-16); AST,SGOT 15 U/L (5-34); BILIRUBIN,TOTAL 0.3 mg/dL (0.2-1.2); BLOOD UREA NITROGEN 25 mg/dL (10-20); CARBON DIOXIDE 22 mmol/L (23-31); CHLORIDE 100 mmol/L (98-107); CREATININE, serum 1.01 mg/dL (0.57-1.11); POTASSIUM 4.6 mmol/L (3.5-4.5); SODIUM 136 mmol/L (136-145); TOTAL PROTEIN 6.9 gm/dL (6.2-8.1)
[2021-08-11 12:52] LABS: GLUCOSE 401 mg/dL (70-99)
[2021-08-11 12:58] LABS: TROPONIN-I < 0.010 ng/mL (0.00-0.033)
--- NOTE | 2021-08-11 19:40 | NUR ---
Pt arrived to floor at 1540 via cart with labor law professor staff. R Radial access site had scant bloody drainage, CMS in tact, VSS. Eating and drinking well. Resting in bed with at bedside. Able to slowly deflate radial band from 1730 to 1900 and pt tolerated well. Report given to nightshift nurse who will resume care.
[2021-08-12] VITALS: BP 110/62
[2021-08-12 04:24] VITALS: BP 102/59; PULSE 70; TEMP 97.7
--- NOTE | 2021-08-12 06:30 | NUR ---
ASSESSMENT COMPLETE FOR THIS SHIFT. PT RESTING IN BED TALKING TO HER SISTER ON THE PHONE. PT DENIES PAIN, PALPITATIONS, N,V,D, SOB OR DIZZINESS. PT'S RADIAL SITE SOFT TO PALPATION, NO OOZING, NO TENDERNESS TO TOUCH, COVERED WITH BANDAID. THERE WAS SOME ISSUES WITH PT STAYING ON TELLE. PADS REPLACED A COUPLE OF TIMES TONIGHT. PT EXPRESSED NO OTHER NEEDS AT THIS TIME. CALL LIGHT WITHIN REACH.
[2021-08-12 08:00] VITALS: BP 102/59; PULSE 70; TEMP 97.7
--- NOTE | 2021-08-12 09:08 | NUR ---
STANLEY met with the patient to discuss discharge plan. The patient lives in [place] with her , Ted (ph#[phone]), in a RV. She reports independence with ADLs and does not have any DME. The patient's PCP is Dr. Familia Watkins and she receives her medications from [facility]. She reports no difficulties obtaining her meds. The patient does not have a DPOA-HC and she was not interested in completing one at this time. The patient plans on returning home with her upon discharge. No additional needs at this time. *Discharge plan: home with *
--- NOTE | 2021-08-12 09:21 | NUR ---
Assessment completed, alert/oriented, vital signs stable, denies pain or discomfort, right radial puncutre/ access site is soft with no signs of bleeding or hematoma, distal pulses are palpable, SR on tele, lugns CTA/ no resp.difficulty noted, fsbs WNL and patient has had breafkast and insulin given, denies other needs at this this time, I anticipate discharge home later today
--- NOTE | 2021-08-12 10:32 | NUR ---
Initial visit attempt; Patient sleeping, Hotel General Manager left card letting patient know of the availability of spiritual care at our hospital.
[2021-08-12 13:08] VITALS: BP 124/61; PULSE 67; TEMP 98.1
--- NOTE | 2021-08-12 14:30 | NUR ---
Discharge instructions reviewed with patient and her , instructed to follow up with PCP and Cardiology as we have scheduled for her, instructed to continue all previous home meds with no new meds or med changes made, IV(s) removed and tele removed, ambulatory and leaving with her , I will escort them out the door
== END 2021-08-12 15:51 | disposition home or self-care (01) ==
LOC: COL.ER 12:12 → MEDICAL 16:11
PROVIDERS: Physician Assistant; ADMIT Student in an Organized Health Care Education/Training Program
DX: I21.4 Non-ST elevation (NSTEMI) myocardial infarction (principal); I50.20 Unspecified systolic (congestive) heart failure; I25.110 Atherosclerotic heart disease of native coronary artery with unstable angina pectoris; E11.65 Type 2 diabetes mellitus with hyperglycemia; E78.5 Hyperlipidemia, unspecified; I11.0 Hypertensive heart disease with heart failure; E83.52 Hypercalcemia; D18.09 Hemangioma of other sites; Z20.822 Contact with and (suspected) exposure to COVID-19; F32.A Depression, unspecified; K21.9 Gastro-esophageal reflux disease without esophagitis; Z95.5 Presence of coronary angioplasty implant and graft; Z79.82 Long term (current) use of aspirin; Z79.02 Long term (current) use of antithrombotics/antiplatelets; Z79.899 Other long term (current) drug therapy; Z79.84 Long term (current) use of oral hypoglycemic drugs; Z79.4 Long term (current) use of insulin
CPT/HCPCS: 99222-AI; C1725; C1769; C1874; C1887; C9113; C9600; G0378; J0583; J1644; J1815; J2250; J2405; J3010; J7030; Q9967

== ENCOUNTER → 2021-08-23 | Outpatient (RCR) | payer BC | END | disposition home or self-care (01) | LOC: COL.CR | DX: I21.4 Non-ST elevation (NSTEMI) myocardial infarction (principal) ==

== ENCOUNTER 2021-09-20 14:07 | Outpatient (RCR) | payer BC | END 2021-09-23 | disposition home or self-care (01) | LOC: COL.CR | DX: I25.2 Old myocardial infarction (principal) ==

== ENCOUNTER → 2021-11-08 | Outpatient (CLI) | payer BC | LOC: COL.RAD 11:41 | DX: D18.00 Hemangioma unspecified site (principal) | CPT/HCPCS: A9575 ==

== ENCOUNTER → 2022-02-08 | Outpatient (CLI) | payer BC | LOC: MC.RAD 09:20 | DX: Z12.31 Encounter for screening mammogram for malignant neoplasm of breast (principal) ==

== ENCOUNTER 2022-04-19 17:19 | Emergency (ER) | payer BC ==
[~2022-04-19] VITALS: Ht 165.1 cm; Wt 86.4 kg
[2022-04-19 17:41] VITALS: TEMP 98.3
[2022-04-19 19:51] LABS: BASO % 0.4 % (0.0-2.0); EOS # 0.1 K/mm3 (0.0-0.7); EOS % 0.7 % (0.0-4.0); GRAN # 6.1 K/mm3 (1.4-6.5); HEMATOCRIT 41.8 % (37.0-47.0); HEMOGLOBIN 13.7 g/dl (12.5-16.0); LYMPH # 2.1 K/mm3 (1.2-3.4); LYMPH % 23.9 % (20.0-51.0); MEAN CELL VOLUME 82 fl (80.0-100.0); MEAN CORPUSCULAR HEMOGLOBIN 27 pg (27-31); MEAN CORPUSCULAR HGB CONC 33 g/dl (33.0-37.0); MEAN PLATELET VOLUME 9.6 fl (7.4-10.4); MONO # 0.6 K/mm3 (0.1-0.6); MONO % 6.8 % (1.7-9.3); PLATELET COUNT 402 K/mm3 (130-400); RED BLOOD COUNT 5.08 M/mm3 (4.10-5.30)
[2022-04-19 19:54] LABS: COLLECTION METHOD CLEAN CATCH
[2022-04-19 19:57] LABS: URINE APPEARANCE Clear (CLEAR/HAZY); URINE COLOR Yellow (YELLOW)
[2022-04-19 19:58] LABS: URINE BLOOD Negative (NEGATIVE); URINE GLUCOSE Negative (NEGATIVE); URINE KETONE 2+ (NEGATIVE); URINE NITRATE Negative (NEGATIVE); URINE PROTEIN(semi-quant) Negative (NEGATIVE); URINE UROBILINOGEN 0.2 E.U/dL (0.2-1.0)
[2022-04-19] MEDS ORDERED: ULTRAM 50MG TAB50 MG PO (19:58)
[2022-04-19] MEDS ORDERED: LIORESAL 1010 MG/TAB PO (19:59)
[2022-04-19] MEDS ORDERED: PRINIVIL20 MG PO (19:59)
[2022-04-19 20:01] LABS: MUCOUS Present (NOT PRESENT); SQUAMOUS EPITHELIAL None Seen /hpf (0-10); URINE BACTERIA None Seen /hpf (NONE SEEN); URINE RBC 0-2 /hpf (0-2)
[2022-04-19 20:15] LABS: ALBUMIN 4.1 gm/dL (3.4-4.8); BILIRUBIN,TOTAL 0.4 mg/dL (0.2-1.2); CREATININE, serum 0.83 mg/dL (0.57-1.11); POTASSIUM 3.6 mmol/L (3.5-4.5); TOTAL PROTEIN 7.9 gm/dL (6.2-8.1)
[2022-04-19] MEDS ORDERED: CEPHALEXIN500 M1 PO (21:59)
[2022-04-19] MEDS ORDERED: ZOFRAN ODT8 MG PO (21:59)
[2022-04-19 22:19] VITALS: BP 131/81; PULSE 92
== END 2022-04-19 22:20 | disposition home or self-care (01) ==
LOC: COL.ER 17:19
PROVIDERS: Emergency Medicine
DX: N12 Tubulo-interstitial nephritis, not specified as acute or chronic (principal); M54.50 Low back pain, unspecified
CPT/HCPCS: J0696; J2270; J2765; J7030; Q9967

== ENCOUNTER → 2022-05-02 | Outpatient (CLI) | payer BC ==
[~2022-05-02] VITALS: Ht 165.1 cm; Wt 84.2 kg
[~2022-05-02] MED LIST changes: +CEPHALEXIN500 M1 PO; +CRESTOR20 MG PO; +LIORESAL 1010 MG/TAB PO; +PRINIVIL20 MG PO; +ULTRAM 50MG TAB50 MG PO; +ZOFRAN ODT8 MG PO
[2022-05-02 12:38] VITALS: BP 118/71; PULSE 89; TEMP 97.6
[2022-05-02 13:38] VITALS: BP 103/68; PULSE 92
== END ==
LOC: COL.RAD 12:02
DX: M51.36 Other intervertebral disc degeneration, lumbar region (principal)
CPT/HCPCS: J3301

== ENCOUNTER 2024-01-03 06:58 | Day surgery (SDC) | payer OTHER, MEDICARE ==
[2024-01-03] VITALS (10 sets, daily range): BP systolic 126–144; BP diastolic 67–89; PULSE 62–74; TEMP 98
[~2024-01-03] VITALS: Ht 165.2 cm; Wt 84.0 kg
[~2024-01-03 06:58] MED LIST changes: +NITROSTAT0.3 MG SL; +OZEMPIC0.25 MG/0. SQ
[2024-01-03] MEDS ORDERED: 1/2 NS 1,000 ML IV SCH (08:00)
[2024-01-03] MEDS ORDERED: REPATHA SU140 MG/1 M SQ (08:09)
[2024-01-03] MEDS ORDERED: LIPITOR 40MG TA40 MG PO (08:10)
[2024-01-03] MEDS ORDERED: CVS GLUCOSE BIT1 CTB (08:11)
[2024-01-03 08:18] LABS: HEMATOCRIT 41.8 % (37.0-47.0); HEMOGLOBIN 13.9 g/dl (12.5-16.0); MEAN CELL VOLUME 81 fl (80.0-100.0); MEAN CORPUSCULAR HEMOGLOBIN 27 pg (27-31); MEAN CORPUSCULAR HGB CONC 33 g/dl (33.0-37.0); MEAN PLATELET VOLUME 9.9 fl (7.4-10.4); PLATELET COUNT 300 K/mm3 (130-400); RED BLOOD COUNT 5.14 M/mm3 (4.10-5.30); REDCELL DISTRIBUTION WIDTH-CV 20.2 % (11.5-14.5)
[2024-01-03 08:24] LABS: INR 0.9 (0.8-3.0); PROTHROMBIN TIME 10.2 SECONDS (9.7-12.8)
[2024-01-03 08:27] LABS: PARTIAL THROMBOPLASTIN TIME 28.5 SECONDS (26.0-37.0)
[2024-01-03 08:35] LABS: CALCIUM 8.9 mg/dL (8.4-10.2); CREATININE, serum 0.68 mg/dL (0.57-1.11); POTASSIUM 3.6 mEq/L (3.5-4.5)
[2024-01-03] MEDS ORDERED: Nitroglycerin 2% Topical Oint 1 GM UD TD SCH (08:47)
--- NOTE | 2024-01-03 09:47 | NUR ---
Please see merge documentation for recordof interventions, vitals and medications administered during left heart cath with Dr. Sharma
[2024-01-03] MEDS ORDERED: Ondansetron 4 MG/2 ML VIAL IV SCH (10:27)
[2024-01-03] MEDS ORDERED: fentaNYL 50 MCG/ML 2 ML VIAL IV SCH (10:28)
[2024-01-03] MEDS ORDERED: Midazolam 2 MG/2 ML VIAL IV SCH (10:29)
[2024-01-03] MEDS ORDERED: Iohexol 350 - 100 ML VIAL INCOR ONE (10:30)
--- NOTE | 2024-01-03 10:45 | NUR ---
pt returned to eu 12 via bed from director of labor and delivery, awake and alert, pt is supine with HOB 20 degrees, reviewed with pt not to lift head or bend right leg for 4 hours. call light in reach. friend in room, pt checked blood sugar on arrival in room at 178, states if con't to rise, "i brought my own pen in for short acting novolog insulin and would like to recieve this" stated will contact Dr Sharma if that is the case and will con't to monitor. pt took snack and water, meal ordered
--- NOTE | 2024-01-03 11:05 | NUR ---
Alina is transferred back to express unit rm 11. Pt is supine, in reverse trendelenberg. rt groin site remains soft, dressing is clean and dry. cms intact distal. BS report and handoff of care to Seda JANSEN.
[2024-01-03] MEDS ORDERED: LIPITOR 80MG80 MG PO (11:45)
[2024-01-03] MEDS ORDERED: IMDUR 60MG60 MG/TAB PO (11:46)
[2024-01-03] MEDS ORDERED: PEPCID40 MG PO (11:47)
[2024-01-03] MEDS ORDERED: Clopidogrel 300 MG DOSE (75 mg x 4 tabs) PO ONE (12:00)
--- NOTE | 2024-01-03 12:15 | NUR ---
notified Dr Sharma concerning pt requesting to take own fast acting novolog insulin due to blood sugar increasing, currently at 220, order recieved. pt took 15 units of novolog pen in abd. Pt has scant amt of red drainage to corner of 2x2, area marked, will con't to monitor, area remains soft. also new order for plavix given and 300mg loading dose given as ordered
--- NOTE | 2024-01-03 13:15 | NUR ---
eats lunch, remains bedrest, no change in markings of 2x2 on right groin
--- NOTE | 2024-01-03 15:00 | NUR ---
pt sits on side of bed tolerates well, no changes in groin site, soft with no bleeding. pt states blood sugar on phone is now 278 and will give herself more insulin when she is discharged. pt walked to b/r, no c/o. Reviewed discharge inst. with pt on all new med changes, see list, information also given on new meds. pt is leaving for [place] Monday and has no followup with Dr Sharma but states will see cardiology there in January, she will call office and have information sent to them. reviewed care of site and activity IV d'cd and pt dressed, discharged via w/c to car with friend at [id number]
== END 2024-01-03 15:35 | disposition home or self-care (01) ==
LOC: COL.CAR 06:58
PROVIDERS: Internal Medicine Cardiovascular Disease
DX: I25.110 Atherosclerotic heart disease of native coronary artery with unstable angina pectoris (principal); Z95.5 Presence of coronary angioplasty implant and graft; I10 Essential (primary) hypertension; E11.9 Type 2 diabetes mellitus without complications; I21.4 Non-ST elevation (NSTEMI) myocardial infarction; I42.8 Other cardiomyopathies; E78.00 Pure hypercholesterolemia, unspecified; I65.22 Occlusion and stenosis of left carotid artery; R09.89 Other specified symptoms and signs involving the circulatory and respiratory systems; Z79.4 Long term (current) use of insulin; Z79.82 Long term (current) use of aspirin; Z79.899 Other long term (current) drug therapy
CPT/HCPCS: C1760; C1769; C1894; J1644; J2250; J2405; J3010; Q9967